=== PATIENT | male | born 1990 | race Caucasian/White ===

== ENCOUNTER 2025-09-12 12:11 | Emergency (ER) | payer BC, SELFPAY ==
--- NOTE | ~2025-09-12 | XR_ITS ---
EXAMINATION: XR ribs LT 2V w CXR 2V DATE: 09/12/2025 12:57 INDICATION: Left rib pain post fall TECHNIQUE: PA and lateral views of the chest and 3 views of the left ribs were obtained. COMPARISON: Chest radiograph dated 09/27/2016 FINDINGS: Subtle old healed fracture deformity of the anterolateral left third rib. Likely minimally displaced fractures at the anterior left fourth and fifth ribs. No other rib fractures identified. Lungs are clear with no focal airspace opacities, pulmonary edema, pleural effusion or pneumothorax. Cardiomediastinal silhouette is normal. IMPRESSION: 1. Likely minimally displaced fractures of the anterior left fourth and fifth ribs. Correlate for point tenderness at this location. Reviewed, dictated and finalized at location A. [facility] J[facility]ER IMPRESSION: 1. Likely minimally displaced fractures of the anterior left fourth and fifth r ibs. Correlate for point tenderness at this location.
[2025-09-12 12:24] VITALS: BP 126/81; PULSE 80; RESP 16; TEMP 37.2; O2SAT 98
--- OUTSIDE RECORDS SUMMARY | 2025-09-12 13:13 | XMS_ITS | Clinical Summary ---
Author Organization [facility] Address [address] [place] [address] Care Team Providers Care Carpenter Name Role Phone Carlin Nuñez MD Primary Care Provider [phone] Allergies No known active allergies Medications LORazepam (ATIVAN) 1 mg tablet Take 1 tablet (1 mg total) by mouth 2 (two) times a day for 5 doses 5 tablet 2 Active meloxicam (MOBIC) 15 mg tabletIndication s:Left shoulder pain, unspecified chronicity Take 1 tablet (15 mg total) by mouth daily 30 tablet 2 2 Active lamoTRIgine (LaMICtal) 25 mg tabletIndication s:Seizure-like activity (HCC) Take 3 tablets (75 mg total) by mouth 2 (two) times a day 180 tablet 11 5 Active levETIRAcetam (KEPPRA) 500 mg tabletIndication s:Seizure-like activity (HCC) Take 1 tablet (500 mg total) by mouth 2 (two) times a day 60 tablet 11 5 Active albuterol HFA (PROVENTIL HFA,VENTOLIN HFA,PROAIR HFA) 90 mcg/actuation inhaler Inhale 2 puffs every 6 (six) hours as needed for wheezing or shortness of breath 1 each 5 Active Active Problems Problem Noted Date Diagnosed Date Exposure to the flu 11/20/2024 Assessment & Plan (11/20/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 Supportive measures encouraged in office today including use of throat lozenges, antipyretics, and cough suppressants on a p.r.n. Basis. Use of a humidifier or vaporizer would also be advised. Use of Tamiflu discussed today and sent to patient pharmacy. Discussions of complications secondary to influenza included acute bronchitis and pneumonia both of which were covered in detail with Pt and encouraged to F/U office if noted. Transient alteration of awareness 05/14/2022 Seizure-like activity 09/14/2021 Acute medial meniscus tear of right knee 018 Overview (05/22/2018): Added automatically from request for surgery [id number] Resolved Problems Problem Noted Date Diagnosed Date Resolved Date Seizure 05/10/2022 05/14/2022 Surgical History Surgery Date Site/Laterality Comments KNEE ARTHROSCOPY Right Family History Medical History Relation Name Comments Diabetes Father Diabetes Mother Relation Name Status Comments Father Mother Social History Tobacco Use Types Packs/Day Years Used Date Smoking Tobacco: Former Smokeless Tobacco: Never Tobacco Cessation:Counseling Given: Not Answered Alcohol Use Standard Drinks/Week Comments Yes 0 (1 standard drink = 0.6 oz pur e alcohol) socially Sex and Gender Information Value Date Recorded Sex Assigned at Not on file Legal Sex 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 Gender Identity Not on file Sexual Orientation Not on file Last Filed Vital Signs Vital Sign Reading Time Taken Comments Blood Pressure 130/86 04/02/2025 10:00 AM CDT Pulse 80 04/02/2025 10:00 AM CDT Temperature 36.2 C (97.2 F) 04/02/2025 10:00 AM CDT Respiratory Rate 17 04/02/2025 10:00 AM CDT Oxygen Saturation 99% 04/02/2025 10:00 AM CDT Inhaled Oxygen Concentration - - Weight 104.8 kg (231 lb) 04/02/2025 10:00 AM CDT Height 182.9 cm (6') 04/02/2025 10:00 AM CDT Body Mass Index 31.33 04/02/2025 10:00 AM CDT Plan of Treatment Health Maintenance Due Date Last Done Comments Depression Screening 1989 Hepatitis C Screening 1989 DTaP/Tdap/Td Vaccine (1 - Tdap) 2000 Varicella Vaccines (1 of 2 - 13+ 2-dose series) 2002 Hepatitis B Screening 12/02/2007 Regular Well Visit/Exam 18-64 12/02/2007 HPV Vaccines (1 - 3-dose SCD M series) 2016 Influenza Vaccine (#1) 2025 Pneumococcal vaccine <65 Aged Out No longer eligible based on patient's age to complete this topic Insurance [employer] Advance Directives For more information, please contact: [phone] * Full Code (Latest Code Status on File) Date Activated Date Inactivated Comments 05/10/2022 9:46 AM 05/14/2022 6:27 PM Care Teams Carpenter Relationship Specialty Start Date End Date Carlin Nuñez MD PCP - General Internal Medicine 09/14/21
--- OUTSIDE RECORDS SUMMARY | 2025-09-12 13:13 | XMS_ITS | Clinical Summary ---
Author Organization [facility] Address [address] [place] [address] Phone Care Team Providers Care Gravity Prospector Name Role Phone Unavailable Primary Care Provider Unavailabl e Allergies No known active allergies Medications No known medications Active Problems No known active problems Family History Medical History Relation Name Comments No Known Problems Father Diabetes Mother Relation Name Status Comments Father Alive Mother Alive Social History Tobacco Use Types Packs/Day Years Used Date Smoking Tobacco: Light Smoker Smokeless Tobacco: Never Comments:E-Cig Alcohol Use Standard Drinks/Week Comments Not Currently 0 (1 standard drink = 0.6 oz pur e alcohol) PHQ-2 Answer Date Recorded Total Score - Questions 1-9 0 08/27 Sexually Active Control Partners Comments Yes Sex and Gender Information Value Date Recorded Sex Assigned at Not on file Legal Sex Male 9:20 PM CDT Gender Identity Not on file Sexual Orientation Not on file Last Filed Vital Signs Vital Sign Reading Time Taken Comments Blood Pressure 126/72 09/14/2021 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 Pulse 90 09/14/2021 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 Temperature 36.8 C (98.2 F) 09/14/2021 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 Respiratory Rate - - Oxygen Saturation 98% 09/14/2021 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 Inhaled Oxygen Concentration - - Weight 100.2 kg (221 lb) 09/14/2021 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 Height 182.9 cm (6') 09/14/2021 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 Body Mass Index 29.97 09/14/2021 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 Plan of Treatment Health Maintenance Due Date Last Done Comments Hepatitis C Virus (HCV) Screening 1989 TdaP Immunization 1989 Varicella Immunization (1 of 2 - 13+ 2-dose series) 2002 Hepatitis B Immunization (1 of 3 - 19+ 3-dose series) 2008 Influenza Immunization (#1) 2025 SARS-COV-2 Immunization (2024- season) 2025 Respiratory Syncytial Virus (RSV) Immunization (Adult) (1 - 1-dose 75+ series) 2064 Human Papillomavirus (HPV) Immunization (No Doses Required) Completed Meningococcal Immunization (ACWY) Aged Out No longer eligible based on patient's age to complete this topic Pneumococcal Immunization Combined Aged Out No longer eligible based on patient's age to complete this topic Rotavirus Immunization Aged Out No lo nger eligible based on patient's age to complete this topic Insurance [employer]
--- NOTE | 2025-09-12 13:35 | ED.GENADULT ---
HPI - General Adult General Chief complaint: Unspecified Stated complaint: Think I have cracked ribs Time Seen by Provider: 09/12/25 13:20 Source: patient and RN notes reviewed Mode of arrival: ambulatory Limitations: no limitations History of Present Illness HPI narrative: 34-year-old male patient presents Express Care complaining of left rib injury approximately 1 week ago. Patient says he was wrestling around with his child in the bed when he accidentally fell off the bed landing on his left side hearing a pop in his left ribs followed by pain. Patient continues to have pain to the anterior chest wall near the sternum, he reports that radiates sometimes into the left flank patient says the pain is worse with a deep breath or when coughing. Patient denies any difficulty breathing, fevers, body aches, chills, cough, or any other symptoms. Review taking ibuprofen with some relief. Related Data Home Medications ?Medication ?Instructions ?Recorded ?Confirmed ?Last Taken ?Type lamotrigine 25 mg tablet mg 09/12/25 Unknown History levetiracetam 500 mg tablet mg PO 09/12/25 Unknown History Allergies Allergy/AdvReac Type Severity Reaction Status Date / Time No Known Allergies Allergy Verified 09/12/25 12:20 Review of Systems Review of Systems: CONSTITUTIONAL: Denies fever, chills, or sweats. EYES: Denies visual changes, redness, or discharge. ENT: Denies rhinorrhea, congestion, sore throat, or otalgia. CARDIOVASCULAR: Denies chest pain, palpitations, or edema. RESPIRATORY: Denies cough or dyspnea. GASTROINTESTINAL: Denies abdominal pain, nausea, vomiting, or diarrhea. GENITOURINARY: Denies dysuria or hematuria. SKIN: Denies rash or itching. MUSCULOSKELETAL: Denies back pain, joint pain, or myalgia. Positive for rib pain. NEUROLOGIC: Denies headache, numbness, or weakness. PSYCHIATRIC: Denies anxiety or depression. All other systems reviewed are negative, except as documented in HPI. PMFSH Comments At the time of my signature, I reviewed and agree with the nursing past medical, surgical, social, and family history. There is no relevant family history pertinent to the patient complaint. Exam Narrative: GENERAL: This is a well-nourished, well-developed adult, in no apparent distress. They are non ill-appearing, nontoxic appearing. HEAD: normocephalic, atraumatic. EYES: Sclera clear/white. Conjunctiva normal. Vision is grossly intact. Extraocular movements intact EARS: External ears normal, Hearing grossly intact. NOSE: External nose normal THROAT: Mucous membranes moist, NECK: Neck supple, CARDIOVASCULAR: Regular rate and rhythm without murmurs, gallops, or rubs. CHEST WALL: Tenderness to palpation to 4th and 5th anterior ribs near the sternum. No obvious bruising or swelling. No flail chest segment, no paradoxical movements. RESPIRATORY: Clear to auscultation. Breath sounds equal bilaterally. No wheezes, rales, or rhonchi. SKIN: warm, Dry, intact with no suspicious lesions or rash, good texture and turgor. NEURO: awake, alert, and oriented to person, place and time. There were no obvious focal neurologic abnormalities. EXTREMITIES: No joint tenderness, effusion, or edema noted. BACK: Nontender without deformity. Course Course Level of Care: Express Care Visit Vital Signs Vital signs: Vital Signs Temperature 99.0 F 09/12/25 12:24 Pulse Rate 80 09/12/25 12:24 Respiratory Rate 16 09/12/25 12:24 Blood Pressure 126/81 09/12/25 12:24 Pulse Oximetry 98 09/12/25 12:24 Oxygen Delivery Room Air 09/12/25 12:24 Temperature 99.0 F 09/12/25 12:24 Pulse Rate 80 09/12/25 12:24 Respiratory Rate 16 09/12/25 12:24 Blood Pressure 126/81 09/12/25 12:24 Pulse Oximetry 98 09/12/25 12:24 Oxygen Delivery Room Air 09/12/25 12:24 [facility] Narrative Medical decision making narrative: X-ray of patient's left ribs negative for any acute cardiopulmonary findings, does show minimally displaced 4th and 5th rib fracture, shows a possibly healed 3rd rib fracture. Will send him [place] as needed for severe pains, patient given incentive spirometer, he was demonstrate how to use it by nursing staff. Discussed physical exam findings. Advised supportive measures and signs/symptoms to go to the ER. Pt is appropriate for outpt treatment and f/u. Differential Diagnosis Differential Diagnosis: Rib fracture, rib contusion, muscle strain Imaging Data Radiologist's impression: ITS Impressions Ribs w/Chest X-Ray 09/12/25 13:05 IMPRESSION: 1. Likely minimally displaced fractures of the anterior left fourth and fifth ribs. Correlate for point tenderness at this location. Critical Care Time Critical Care Time Critical Care Time: No Discharge Plan Discharge Clinical Impression: Closed rib fracture Qualifiers: Encounter type: initial encounter Rib fracture type: multiple ribs Laterality: left Qualified Code(s): S22.42XA - Multiple fractures of ribs, left side, initial encounter for closed fracture Patient Disposition: Home Condition: Stable Instructions: Rib Fracture (ED) Additional Instructions: Chest x-ray and rib x-ray was negative for any acute cardiopulmonary findings, did show minimally displaced rib fractures to the 4th and 5th anterior left ribs. Shows a possible healed old rib fracture to the 3rd anterior rib. Using incentive spirometer while awake every 2 hours, on the hour taking 10 deep breaths to help prevent pneumonia. You may take ibuprofen 600 mg to 800 mg every 6-8 hours. Do not exceed more than 800 mg of ibuprofen per dose. Do not exceed more than 3200 mg ibuprofen in a day. You may take up to 1000 mg Tylenol every 6-8 hours. Do not exceed 1000 mg per dose, do exceed more than 4000 mg of Tylenol in a day. You may apply ice to the affected area 15-20 minutes at a time a few times a day. Take [place] as needed for severe pain, it already contains Tylenol in it is of be mindful of the amount of Tylenol you are consuming. [place] may make you drowsy do not drive or operate machinery while taking this medication. Follow-up with your PCP in 3-5 days. Look for signs of pneumonia such as chest pain, difficulty breathing, weakness, fevers, chills, sweats, productive wet cough. Go to the ER if he develops any signs of pneumonia, breathing problems, uncontrollable pain, or any serious concerns. Patient Language: Prydeinig Prescriptions: New hydrocodone-acetaminophen 5-325 mg tablet 1 tablet PO Q6H PRN (Reason: pain) Qty: 20 0RF No Action levetiracetam 500 mg tablet PO lamotrigine 25 mg tablet Follow-up/Referrals: UNKNOWN,DOCTOR [Primary Care Provider] Time of Disposition: 13:38
== END 2025-09-12 13:47 | disposition home or self-care (01) ==
DX: S22.42XA Multiple fractures of ribs, left side, initial encounter for closed fracture (principal); W06.XXXA Fall from bed, initial encounter; Y93.83 Activity, rough housing and horseplay
CPT/HCPCS: 71046; 71100; 99203; G0463